=== PATIENT | male | born 1965 | race Caucasian/White ===

== ENCOUNTER 2016-10-13 22:24 | Emergency (ER) | payer OTHER ==
[2016-10-13] MEDS ORDERED: CIPROFLOXACIN HCL 500 MG TABLET PO ONE (23:13)
[2016-10-13] MEDS ORDERED: METRONIDAZOLE 500 MG TABLET PO ONE (23:13)
[2016-10-13] MEDS ORDERED: NORMAL SALINE 1000 ML 1,000 ML IV ONE (23:13)
--- NOTE | 2016-10-13 23:15 | ER Document Report ---
ED GI/ - General Chief Complaint: Abdominal Pain Stated Complaint: ABDOMINAL PAIN Time seen by provider: 23:10 Notes: Patient is a 50-year-old male that comes emergency department with chief complaint of body aches, vomiting 2, and diarrhea since yesterday, he states he was seen in urgent care who ordered blood tests and a CAT scan, he states he is here for the results and treatment of this. Patient states he has had a colonoscopy which is normal, he denies any blood in the vomit or stool. Patient denies any suspicious foods or recent antibiotics. TRAVEL OUTSIDE OF THE [place] IN LAST 30 DAYS: No - Related Data Allergies/Adverse Reactions: No Known Allergies Allergy (Unverified 07/05/15 13:51) Past Medical History - General Information source: Patient - Social History Smoking Status: Never Smoker Frequency of alcohol use: None Lives with: Family Family History: Reviewed & Not Pertinent - Past Medical History Cardiac Medical History: Reports: Hx Hypertension - MEDICATED Denies: Hx Heart Attack Pulmonary Medical History: Denies: Hx Asthma Neurological Medical History: Denies: Hx Cerebrovascular Accident, Hx Seizures GI Medical History: Denies: Hx Hepatitis, Hx Hiatal Hernia, Hx Ulcer Infectious Medical History: Denies: Hx Hepatitis Surgical Hx: Negative Past Surgical History: Denies: Hx Open Heart Surgery, Hx Pacemaker - Immunizations Immunizations up to date: Yes Hx Diphtheria, Pertussis, Tetanus Vaccination: Yes Review of Systems - Review of Systems Constitutional: See HPI EENT: No symptoms reported Cardiovascular: No symptoms reported Respiratory: No symptoms reported Gastrointestinal: See HPI Genitourinary: No symptoms reported Male Genitourinary: No symptoms reported Musculoskeletal: No symptoms reported Skin: No symptoms reported Hematologic/Lymphatic: No symptoms reported Neurological/Psychological: No symptoms reported Physical Exam - Vital signs Vitals: Temp Pulse Resp BP Pulse Ox 98.5 F 76 16 126/78 H 98 10/13/16 22:45 10/13/16 22:45 10/13/16 22:45 10/13/16 22:45 10/13/16 22:45 Interpretation: Normal - General General appearance: Other - Patient slightly pale in appearance, however he does not appear to be in any distress In distress: None - HEENT Head: Normocephalic, Atraumatic Eyes: Normal Conjunctiva: Normal Extraocular movements intact: Yes Eyelashes: Normal Pupils: PERRL Mouth/Lips: Normal Mucous membranes: Normal Pharynx: Normal Neck: Normal - Respiratory Respiratory status: No respiratory distress Chest status: Nontender Breath sounds: Normal Chest palpation: Normal - Cardiovascular Rhythm: Regular. No: Tachycardia Heart sounds: Normal auscultation, S1 appreciated, S2 appreciated Murmur: No - Abdominal Inspection: Normal Distension: No distension Bowel sounds: Normal Tenderness: Tender - There is tenderness over the mid to lower left quadrants with mild guarding, mild generalized tenderness over the rest of the abdomen - Back Back: Normal, Nontender - Extremities General upper extremity: Normal inspection, Nontender, Normal color, Normal ROM , Normal temperature General lower extremity: Normal inspection, Nontender, Normal color, Normal ROM , Normal temperature, Normal weight bearing. No: Joshua's sign - Neurological Neuro grossly intact: Yes Cognition: Normal Orientation: AAOx4 [place] Coma Scale Eye Opening: Spontaneous [place] Coma Scale Verbal: Oriented [place] Coma Scale Motor: Obeys Commands Nevin Coma Scale Total: 15 Speech: Normal Motor strength normal: LUE, RUE, LLE, RLE Sensory: Normal - Psychological Associated symptoms: Normal affect, Normal mood - Skin Skin Temperature: Warm Skin Moisture: Dry Skin Color: Normal Course - Re-evaluation Re-evalutation: I was able to review labs drawn which apparently were [facility] along with a CAT scan, no leukocytosis or concerning findings on CBC , chemistry shows mildly elevated creatinine at 1.35 with GFR of 56, no comparison labs, chemistry otherwise is unremarkable. Patient given IV fluids. CT with IV and oral contrast reviewed, shows mild colonic wall thickening suspicious for colitis, fatty liver, mild splenomegaly. Patient does have mid to lower left quadrant abdominal tenderness on examination, otherwise he is generally well-appearing. He denies abdominal pain unless I press on his belly. Patient treated with Cipro, Flagyl, patient already has a prescription of Phenergan with him, patient advised to follow-up closely with primary care, have fluid diet over the next 24 hours or so, and return for any signs of worsening symptoms which were discussed. Patient states understanding and agreement. - Vital Signs Vital signs: Temp Pulse Resp BP Pulse Ox 98.6 F 70 16 122/76 98 10/14/16 00:48 10/14/16 00:48 10/14/16 00:48 10/14/16 00:48 10/14/16 00:48 Discharge - Discharge Clinical Impression: Vomiting and diarrhea, Colitis Condition: Stable Disposition: HOME, SELF-CARE Additional Instructions: CAT scan imaging shows inflammation of your large intestine - please take Cipro and Flagyl antibiotics as directed, take your Phenergan if needed for nausea. Drink clear fluids the first day, after this progressed slowly with bland diet. Follow-up with primary care in 2-3 days. Return immediately for any concerning or worsening symptoms including worsening abdominal pain, bloody bowel movements, etc. Prescriptions: Ciprofloxacin HCl [Cipro 500 mg Tablet] 500 mg PO BID #14 tablet Metronidazole [Flagyl 500 mg Tablet] 500 mg PO TID #21 tablet Referrals: ELLY FRAZIER, JORJE-C [Primary Care Provider] - Follow up as needed
[2016-10-14 00:49] VITALS: BP 122/76
== END 2016-10-14 00:50 | disposition home or self-care (01) ==
LOC: ER 22:24
DX: K52.9 Noninfective gastroenteritis and colitis, unspecified (principal); M79.1 Myalgia; R11.10 Vomiting, unspecified; R19.7 Diarrhea, unspecified; I10 Essential (primary) hypertension
CPT/HCPCS: 99283; 96360; J7030

== ENCOUNTER → 2016-10-13 | Outpatient (CLI) | payer OTHER ==
[2016-10-13 19:20] LABS: ABSOLUTE LYMPHOCYTES (AUTO) 1.5 10^3/uL (0.5-4.7); ABSOLUTE MONOCYTES (AUTO) 0.7 10^3/uL (0.1-1.4); ABSOLUTE NEUT (AUTO) 7.2 10^3/uL (1.7-8.2); BASOPHILS % (AUTO) 0.5 % (0-2); EOSINOPHILS % (AUTO) 0.2 % (0-6); HEMATOCRIT 39.2 % (37.9-51.0); HEMOGLOBIN 13.7 g/dL (13.5-17.0); HGB HCT DIFFERENCE 1.9; LYMPHOCYTES % (AUTO) 15.9 % (13-45); MEAN CORPUSCULAR HEMOGLOBIN 28.5 pg (27.0-33.4); MEAN CORPUSCULAR VOLUME 82 fl (80-97); RED BLOOD COUNT 4.81 10^6/uL (4.35-5.55); RED CELL DISTRIBUTION WIDTH 13.1 % (11.5-14.0); SEGMENTED NEUTROPHILS % (AUTO) 76.4 % (42-78); WHITE BLOOD COUNT 9.4 10^3/uL (4.0-10.5)
[2016-10-13 19:34] LABS: ALANINE AMINOTRANSFERASE 54 U/L (21-72); ALBUMIN 4.7 g/dL (3.5-5.0); ALKALINE PHOSPHATASE 62 U/L (38-126); ASPARTATE AMINO TRANSFERASE 38 U/L (17-59); BILIRUBIN,TOTAL 0.9 mg/dL (0.2-1.3); BLOOD UREA NITROGEN 16 mg/dL (7-20); CALCIUM 9.4 mg/dL (8.4-10.2); CHLORIDE 99 mmol/L (98-107); CREATININE RESULT 1.35 mg/dL (0.52-1.25); GLUCOSE 88 mg/dL (75-110); LIPASE 84.4 U/L (23-300); POTASSIUM 4.7 mmol/L (3.6-5.0); TOTAL PROTEIN 7.2 g/dL (6.3-8.2)
[2016-10-13 19:43] LABS: CARBON DIOXIDE 27 mmol/L (22-30); SODIUM 141.2 mmol/L (137-145)
[2016-10-13 19:47] LABS: ANION GAP 15 (5-19)
== END ==
LOC: RAD 18:25
PROVIDERS: ATTEND Physician Assistant
DX: R10.9 Unspecified abdominal pain (principal); K76.0 Fatty (change of) liver, not elsewhere classified; R16.1 Splenomegaly, not elsewhere classified
CPT/HCPCS: 36415; 74177; 80053; 83690; 85025